=== PATIENT | male | born 1980 | race Caucasian/White ===

== ENCOUNTER 2017-06-16 08:44 | Emergency (ER) | payer SELFPAY ==
[2017-06-16 08:54] VITALS: TEMP 36.9
[2017-06-16] MEDS ORDERED: ONDANSETRON INJ 2 MG/ML 2 ML VIAL IV STA (09:35)
[2017-06-16] MEDS ORDERED: SODIUM CHLORIDE 0.9% 500ML 500 ML IV STA (09:35)
[2017-06-16] MEDS ORDERED: MoRPHine SULFATE 10 MG/ML CARP/VIAL IV STA ×2 (09:35→11:56)
[2017-06-16] MEDS ORDERED: OPTIRAY 320 IV PRN (09:45)
[2017-06-16 10:05] LABS: BASO % 0.4 %; BASO ABS # 0.05 K/uL (0-0.2); COMPLETE YES; EOS % 1.2 %; HEMATOCRIT 43.3 % (42-52); IG% 0.2 %; LYMPH % 14.7 %; LYMPH ABS # 1.85 K/uL (1.2-3.4); MEAN CELL VOLUME 89.8 fL (80-100); MEAN CORPUSCULAR HEMOGLOBIN 30.9 pg (25-34); MEAN CORPUSCULAR HGB CONC 34.4 g/dl (32-36); MEAN PLATELET VOLUME 9.5 fL (7.4-10.4); MONO % 8.2 %; NEUT % 75.3 %; PLATELET COUNT 217 K/uL (130-400); RED BLOOD COUNT 4.82 M/uL (4.7-6.1)
[2017-06-16 10:25] LABS: ALT/SGPT 23 U/L (12-78); AST/SGOT 14 U/L (15-37); BLOOD UREA NITROGEN 9 mg/dl (7-18); BUN/CREATININE RATIO 11.7 (10-20); CARBON DIOXIDE 29 mmol/L (21-32); CHLORIDE 106 mmol/L (98-107); GLUCOSE 101 mg/dl (70-99); POTASSIUM 4.2 mmol/L (3.5-5.1); SODIUM 138 mmol/L (136-145)
[2017-06-16 10:28] LABS: ALKALINE PHOSPHATASE 69 U/L (45-117)
--- NOTE | 2017-06-16 11:05 | DIAGNOSTIC IMAGING REPORT ---
RIGHT KNEE 3 VIEWS HISTORY: RIGHT KNEE PAIN COMPARISON: None. FINDINGS: There is no fracture or dislocation. Soft tissues are unremarkable. No radiopaque foreign bodies. Moderate joint effusion. Prepatellar soft tissue swelling. IMPRESSION: Moderate joint effusion and prepatellar soft tissue swelling. No fractures within the right knee. Electronically signed by: Jesus Belcher M.D. 06/16/2017 11:03 AM Dictated Date/Time: 06/16/2017 11:02 AM
--- NOTE | 2017-06-16 12:04 | DIAGNOSTIC IMAGING REPORT ---
CHEST CT WITH CONTRAST CT DOSE: 600.64 mGy.cm HISTORY: fall severe l sided chest pain TECHNIQUE: Multiaxial CT images of the chest were performed following the intravenous administration of contrast. A dose lowering technique was utilized adhering to the principles of ALARA. COMPARISON: Chest CT 10/29/2008. FINDINGS: Multiple old, healed left-sided rib fractures and old right clavicle fracture. Stable 1.2 cm patchy area of sclerosis within the right posterior 10th rib. This is likely benign given the long-term stability. No acute fractures within the visualized osseous structures. Mild anterior wedging within the T1 vertebral body is likely old. The central airways are patent. No pneumothorax. The left lung is clear. Patchy groundglass airspace opacities seen within the lateral segment of the right middle lobe. Mild air trapping seen within the base of the right lower lobe. Stable 8 mm nodular density along the right minor fissure. Therefore, this is considered to be benign. Low-density soft tissue within the anterior mediastinum is again noted and favors residual thymus. This remains unchanged. No pleural or pericardial effusions. The heart is normal in size. No mediastinal or hilar lymphadenopathy. Normal caliber thoracic aorta. The main pulmonary arteries are patent. The visualized liver and adrenal glands are unremarkable. A few punctate calcified granuloma seen within the spleen. IMPRESSION: 1. Patchy groundglass airspace opacities within the right middle lobe. This likely represents a pneumonitis. Recommend one to 2 month chest x-ray follow-up to ensure resolution. 2. Old, healed left-sided rib fractures. No acute fractures. 3. No pneumothorax. Electronically signed by: Jesus Belcher M.D. 06/16/2017 12:03 PM Dictated Date/Time: 06/16/2017 11:54 AM
[2017-06-16 12:29] VITALS: BP 150/72; PULSE 82; O2SAT 96
[2017-06-16] MEDS ORDERED: LEVO1TAB35 PO (12:33)
[2017-06-16] MEDS ORDERED: LEVOFLOXACIN 250 MG TAB PO ONE (12:45)
--- NOTE | 2017-06-16 15:32 | EMERGENCY ROOM VISIT NOTE ---
History Report prepared by Jung[place]karen: Gadiel Vann Under the Supervision of: Dr. Celso Chavez D.O. First contact with patient: 09:17 Chief Complaint: FALL Stated Complaint: FALL SAT PM - RT LEG, LEFT RIBS History of Present Illness The patient is a 37 year old male who presents to the Emergency Room with complaints of constant left rib pain s/p fall occurring two days ago. He was walking outside when he slipped on a rock and fell. He did not hit his head or lose consciousness. The patient also complains of right leg pain from the fall. Patient does complain of mild right knee pain. He has been able to ambulate without difficulty. Pt denies headache, change in vision, fevers, chest pain, shortness of breath, nausea, vomiting, diarrhea, pain with urination, and melena. His tetanus is up to date. Source of History: patient Onset: two days ago Position: other (left ribs) Timing: constant Associated Symptoms: No LOC, No fevers, No headache, No chest pain, No SOB, No vomiting, No abdominal pain, No diarrhea, No urinary symptoms Note: The patient also complains of right leg pain from the fall. Review of Systems See HPI for pertinent positives & negatives. A total of 10 systems reviewed and were otherwise negative. Past Medical & Surgical Medical Problems: (1) Hypertension Family History Cancer Social History Smoking Status: Current Every Day Smoker Alcohol Use: occasionally Marital Status: Housing Status: lives alone Occupation Status: unemployed Current/Historical Medications Scheduled Levofloxacin (Levaquin), 750 MG PO QD@08 Allergies Coded Allergies: No Known Allergies (Unverified , 06/16/17) Physical Exam Vital Signs Date Time Temp Pulse Resp B/P (MAP) Pulse Ox O2 Delivery O2 Flow Rate FiO2 06/16/17 12:29 82 20 150/72 96 Room Air 06/16/17 11:52 93 20 152/74 96 Room Air 06/16/17 10:26 101 18 156/88 94 Room Air 06/16/17 08:54 36.9 111 18 166/94 99 Room Air Physical Exam GENERAL: Sitting up in bed, holding left chest wall, mid distress. HEAD: normal cephalic, atraumatic EYE EXAM: normal conjunctiva. OROPHARYNX: no exudate, no erythema, lips, buccal mucosa, and tongue normal and mucous membranes are moist. No septal hematoma. NECK: supple, no nuchal rigidity, no adenopathy, non-tender CHEST: Acute reproducible tenderness to the left mid-axillary line tracking from ribs 3-10. No obvious bruising. LUNGS: clear to auscultation. Normal chest wall mechanics HEART: no murmurs, S1 normal and S2 normal ABDOMEN: abdomen soft, non-tender, normo-active bowel sounds, no masses, no rebound or guarding. PELVIS: stable to compression anteriorly and posteriorly BACK: Back is symmetrical on inspection and there is no deformity, no midline tenderness, no CVA tenderness. UPPER EXTREMITIES: full active and passive range of motion of all joints without tenderness to palpation LOWER EXTREMITIES: full active and passive range of motion of all joints without tenderness to palpation. Abrasion over left knee and bruising to the right NEURO EXAM: Normal sensorium, cranial nerves II-XII grossly intact, normal speech, no gross weakness of arms, no gross weakness of legs. GCS: 15. Medical Decision & Procedures ER Provider Diagnostic Interpretation: Radiology results as stated below per my review and the radiologist's interpretation: CHEST CT WITH CONTRAST FINDINGS: Multiple old, healed left-sided rib fractures and old right clavicle fracture. Stable 1.2 cm patchy area of sclerosis within the right posterior 10th rib. This is likely benign given the long-term stability. No acute fractures within the visualized osseous structures. Mild anterior wedging within the T1 vertebral body is likely old. The central airways are patent. No pneumothorax. The left lung is clear. Patchy groundglass airspace opacities seen within the lateral segment of the right middle lobe. Mild air trapping seen within the base of the right lower lobe. Stable 8 mm nodular density along the right minor fissure. Therefore, this is considered to be benign. Low-density soft tissue within the anterior mediastinum is again noted and favors residual thymus. This remains unchanged. No pleural or pericardial effusions. The heart is normal in size. No mediastinal or hilar lymphadenopathy. Normal caliber thoracic aorta. The main pulmonary arteries are patent. The visualized liver and adrenal glands are unremarkable. A few punctate calcified granuloma seen within the spleen. IMPRESSION: 1. Patchy groundglass airspace opacities within the right middle lobe. This likely represents a pneumonitis. Recommend one to 2 month chest x-ray follow-up to ensure resolution. 2. Old, healed left-sided rib fractures. No acute fractures. 3. No pneumothorax. Electronically signed by: Jesus Belcher M.D. 06/16/2017 12:03 PM RIGHT KNEE 3 VIEWS FINDINGS: There is no fracture or dislocation. Soft tissues are unremarkable. No radiopaque foreign bodies. Moderate joint effusion. Prepatellar soft tissue swelling. IMPRESSION: Moderate joint effusion and prepatellar soft tissue swelling. No fractures within the right knee. Electronically signed by: Jesus Belcher M.D. 06/16/2017 11:03 AM Laboratory Results 06/16/17 09:50 Red Blood Count 4.82, Mean Corpuscular Volume 89.8, Mean Corpuscular Hemoglobin 30.9, Mean Corpuscular Hemoglobin Concent 34.4, Mean Platelet Volume 9.5, Neutrophils (%) (Auto) 75.3, Lymphocytes (%) (Auto) 14.7, Monocytes (%) (Auto) 8.2, Eosinophils (%) (Auto) 1.2, Basophils (%) (Auto) 0.4, Neutrophils # (Auto) 9.49, Lymphocytes # (Auto) 1.85, Monocytes # (Auto) 1.03, Eosinophils # (Auto) 0.15, Basophils # (Auto) 0.05 06/16/17 09:50 Test 06/16/17 09:50 White Blood Count 12.60 K/uL (4.8-10.8) Red Blood Count 4.82 M/uL (4.7-6.1) Hemoglobin 14.9 g/dL (14.0-18.0) Hematocrit 43.3 % (42-52) Mean Corpuscular Volume 89.8 fL (80-100) Mean Corpuscular Hemoglobin 30.9 pg (25-34) Mean Corpuscular Hemoglobin Concent 34.4 g/dl (32-36) Platelet Count 217 K/uL (130-400) Mean Platelet Volume 9.5 fL (7.4-10.4) Neutrophils (%) (Auto) 75.3 % Lymphocytes (%) (Auto) 14.7 % Monocytes (%) (Auto) 8.2 % Eosinophils (%) (Auto) 1.2 % Basophils (%) (Auto) 0.4 % Neutrophils # (Auto) 9.49 K/uL (1.4-6.5) Lymphocytes # (Auto) 1.85 K/uL (1.2-3.4) Monocytes # (Auto) 1.03 K/uL (0.11-0.59) Eosinophils # (Auto) 0.15 K/uL (0-0.5) Basophils # (Auto) 0.05 K/uL (0-0.2) RDW Standard Deviation 44.7 fL (36.4-46.3) RDW Coefficient of Variation 13.6 % (11.5-14.5) Immature Granulocyte % (Auto) 0.2 % Immature Granulocyte # (Auto) 0.03 K/uL (0.00-0.02) Anion Gap 3.0 mmol/L (3-11) Estimated GFR () 131.3 Estimated GFR (Non- 113.3 BUN/Creatinine Ratio 11.7 (10-20) Calcium Level 9.0 mg/dl (8.5-10.1) Total Bilirubin 0.4 mg/dl (0.2-1) Direct Bilirubin < 0.1 mg/dl (0-0.2) Aspartate Amino Transf (AST/SGOT) 14 U/L (15-37) Alanine Aminotransferase (ALT/SGPT) 23 U/L (12-78) Alkaline Phosphatase 69 U/L (45-117) Total Protein 7.2 gm/dl (6.4-8.2) Albumin 3.6 gm/dl (3.4-5.0) Lipase 75 U/L (73-393) Laboratory results per my review. Medications Administered Medications (Trade) Dose Ordered Sig/Iggy Route Start Time Stop Time Status Last Admin Dose Admin Sodium Chloride 500 ml @ 999 mls/hr Q31M STAT IV 06/16/17 09:35 06/16/17 10:05 DC 06/16/17 10:01 999 MLS/HR Ondansetron HCl (Zofran Inj) 4 mg NOW STAT IV 06/16/17 09:35 06/16/17 09:37 DC 06/16/17 10:02 4 MG Morphine Sulfate (MoRPHine SULFATE INJ) 6 mg NOW STAT IV 06/16/17 09:35 06/16/17 09:37 DC 06/16/17 10:02 6 MG Morphine Sulfate (MoRPHine SULFATE INJ) 6 mg NOW STAT IV 06/16/17 11:56 06/16/17 11:57 DC 06/16/17 12:03 6 MG ED Course ED COURSE: Vital signs were reviewed and showed tachycardia and hypertension. The patients medical record was reviewed The above diagnostic studies were performed and reviewed. ED treatments and interventions as stated above. 0927: The patient was evaluated in room B12B. A complete history and physical examination was performed. 0935: Ordered Morphine Sulfate 6 mg IV, Zofran Inj 4 mg IV, Sodium Chloride 500 ml @ 999 mls/hr IV. 1156: Ordered Morphine Sulfate 6 mg IV. 1230: Upon reevaluation, the patient is resting comfortably. I discussed my findings with the patient and he understands and agrees with the treatment plan. Based on the patients age, coexisting illnesses, exam and lab findings the decision to treat as an outpatient was made. The patient remained stable while under my care. The patient appeared well at the time of discharge. 1245: Ordered Levaquin Tab 500 mg PO. Medical Decision Differential diagnoses include major intracranial, cervical, spinal, thoracic, abdominal, pelvic and neurologic injury. Fracture, contusion, sprain, strain, laceration, abrasions included as well. Patient is a 29-year-old male who presents to ER following a fall this past Friday. He slipped on ice and fell onto his left side. Did not lose consciousness. Takes no blood thinners. On exam he has acute rib tenderness. CT shows no rib fractures. He does have a pneumonitis on the right side. He does admit to a recent URI. Patient has no other complaints at this time exception of mild leukocytosis. BMP all LFTs, bilirubin lipase unremarkable. Patient was updated at bedside. This is clearly muscle skeletal in nature. He was discharged to take Motrin and Tylenol and given a dose of Levaquin prior to discharge for his pneumonitis. He will take this for the next several days and follow-up with PCP. Discussed with Pt concerning signs and symptoms to watch out for. Pt was instructed to follow up with their PCP and discussed with the patient their option to return to the ED at anytime for persistent or worsening symptoms. The appropriate anticipatory guidance and out-patient management, including indications for return to the emergency department, were explained at length to the patient and understood. Medication Reconcilliation Current Medication List: was personally reviewed by me Blood Pressure Screening Patient's blood pressure: Elevated blood pressure Blood pressure disposition: Elevated BP felt to be situational Impression Primary Impression: Rib contusion Additional Impression: Pneumonitis Scribe Attestation The scribe's documentation has been prepared under my direction and personally reviewed by me in its entirety. I confirm that the note above accurately reflects all work, treatment, procedures, and medical decision making performed by me. Departure Information Dispostion Home / Self-Care Prescriptions Levofloxacin (Levaquin) 750 Mg Tab 750 MG PO QD@08, #6 TAB Prov: Celso Chavez, DO 06/16/17 Referrals No Doctor, Assigned (PCP) Forms HOME CARE DOCUMENTATION FORM, IMPORTANT VISIT INFORMATION Patient Instructions ED Contusion Rib, ED Pneumonia Adult, My [facility] Additional Instructions Please follow up with your primary care doctor with in the next 24 hours. Any worsening of your symptoms, please return to the ED immediately. This includes any fevers greater than 100.4, worsening pain, chest pain, shortness breath, persistent nausea, vomiting, unable to eat or drink, or any other concerning signs or symptoms from your standpoint. You were given medications during this visit that will inhibit your ability to drive, operate machinery and work. Please do NOT drive, operate machinery, drink alcohol or work for the next 12hrs. Please take Motrin or Tylenol as needed for pain. Please take the antibiotics as prescribed. Problem Qualifiers Primary Impression: Rib contusion Encounter type: initial encounter Laterality: left Qualified Codes: S20.212A - Contusion of left front wall of thorax, initial encounter
== END 2017-06-16 12:44 | disposition home or self-care (01) ==
LOC: C.EDB 08:45
DX: S20.212A Contusion of left front wall of thorax, initial encounter (principal); S80.212A Abrasion, left knee, initial encounter; S80.01XA Contusion of right knee, initial encounter; W00.9XXA Unspecified fall due to ice and snow, initial encounter; J18.9 Pneumonia, unspecified organism; M79.604 Pain in right leg; I10 Essential (primary) hypertension; F17.200 Nicotine dependence, unspecified, uncomplicated